=== PATIENT | male | born 2000 | race Caucasian/White ===

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

== ENCOUNTER 2022-11-26 17:17 | Inpatient (IN) | payer OTHER ==
[2022-11-26] VITALS (11 sets, daily range): BP systolic 104–162; BP diastolic 57–101
[~2022-11-26] VITALS: Ht 180.3 cm; Wt 95.6 kg
[~2022-11-26 17:17] MED LIST: BENADRYL 50MG C50 MG PO; CIMETIDINE400 M1 PO; PREDNISONE50 MG PO
--- NOTE | 2022-11-26 17:39 | NUR ---
PROVIDER AT BEDSIDE TO DISCUSS POC.
--- NOTE | 2022-11-26 17:42 | NUR ---
PT SITTING UP IN BED C/O ABD PAIN AFTER EATING THIS MORNING; PAIN 6/10; FAMILY MEMBERS AT BEDSIDE. ORIENT TO ROOM AND CALL SNYDER.
--- NOTE | 2022-11-26 17:50 | NUR ---
PORTABLE XRAY AT BEDSIDE.
[2022-11-26 18:05] LABS: BASO% 0.2 % (0-3); EOS% 1.3 % (0-8); HEMATOCRIT 50.1 % (39.0-50.0); HEMOGLOBIN 16.5 g/dl (14.0-18.0); IMMATURE GRANULOCYTES 0.2 % (0.0-5.0); LYMPH% 22.4 % (15-41); MEAN CELL VOLUME 80.3 fL CALC (80.0-100.0); MEAN CORPUSCULAR HGB 26.4 pG CALC (26.0-32.0); MEAN CORPUSCULAR HGB CONC 32.9 g/dL CAL (32.0-36.0); MONO% 7.6 % (2-13); NEUT# 8.54 thou/uL (1.82-7.42); NEUT% 68.3 % (42-76); RED BLOOD COUNT 6.24 mill/uL (4.70-6.10); RED CELL DISTRI WIDTH 12.7 % (11.5-15.5)
--- NOTE | 2022-11-26 18:22 | NUR ---
MEDS ADMINISTERED VIA IV
[2022-11-26 18:28] LABS: ALBUMIN 5.3 g/dL (3.2-5.0); ALKALINE PHOSPHATASE 66 u/l (38-126); ANION GAP 16 (6-22 (CALC)); BILIRUBIN, TOTAL 0.7 mg/dL (0.2-1.3); BUN 18 mg/dL (9-20); BUN/CREATININE RATIO 20 (12-20 (CALC)); CARBON DIOXIDE 31 mmol/l (22-30); CHLORIDE 95 mmol/l (95-108); CREATININE 0.9 mg/dL (0.7-1.3); GFR FOR AFR.AMER. > 60 ML/MIN (>=60 (CALC)); GFR OTHER RACES > 60 ML/MIN (>=60 (CALC)); LIPASE 130 u/l (23-300); POTASSIUM 3.5 mmol/l (3.5-5.1); SGOT/AST 31 u/l (17-59); SODIUM 138 mmol/l (137-146); TOTAL PROTEIN 9.5 g/dL (6.3-8.2)
[2022-11-26 19:01] LABS: URINE BLOOD DIPSTICK NEGATIVE (NEGATIVE); URINE GLUCOSE - DIPSTICK NEGATIVE (NEGATIVE); URINE KETONE 15 mg/dL (NEGATIVE); URINE LEUK ESTERASE NEGATIVE (NEGATIVE); URINE PH 8.5 (4.5-8.0); URINE PROTEIN - DIPSTICK 100 mg/dL (NEG-TRACE)
[2022-11-26 19:08] LABS: URINE BILIRUBIN - DIPSTICK SMALL (NEGATIVE); URINE NITRITE - DIPSTICK NEGATIVE (Negative)
[2022-11-26 19:09] LABS: URINE AMORPH SEDIMENT MANY hpf (NONE-FER)
[2022-11-26 19:10] LABS: URINE COLOR DK. YELLOW
--- NOTE | 2022-11-26 20:30 | NUR ---
NG TUBE PLACEMENT AT 2009. 16 FR USED. PT TOLERATED PLACEMENT WELL. NO COUGHING, 250 CC GASTRIC FLUIDS COLLECTED,. SUCTION SET ON HIGH. ADVANCE TUBE APPROX 1.5 CM AND COLLECTED MORE FLUIDS AT 800CC XRAY DONE TO VERIFY PLACEMENT.
--- NOTE | 2022-11-26 20:39 | NUR ---
PT SITTING UP IN BED, FAMILY AT BEDSIDE
--- NOTE | 2022-11-26 20:44 | NUR ---
CALLED AND SPOKE WITH ACE IN MEDSURGE TO GIVE PT REPORT
--- NOTE | 2022-11-26 21:00 | NUR ---
PT TO MS 264 VIA WHEELCHAIR. NO DISTRESSED NOTED, VSS. FAMILY AT BEDSIDE AND WENT UP TO FLOOR WITH PT.
--- NOTE | 2022-11-26 22:35 | NUR ---
RECEIVED REPORT FROM ER NURSE. PT BROUGHT TO FLOOR AT 2030 VIA WC. NG TUBE IN PLACE TO WALL SUCTION ORDERED. ALERT AND ORIENTED. GIRLFRIEND AT PTS BEDSIDE. DENIES PAIN AT THIS TIME.
[2022-11-27] VITALS (9 sets, daily range): BP systolic 111–128; BP diastolic 56–74
--- NOTE | 2022-11-27 05:35 | NUR ---
pt denies pain. iv fluids maintained. ng tube drained 900 cc at 5:30 am light brown liquid. voided 500 cc in urinal at 5:30 am.
--- NOTE | 2022-11-27 08:00 | NUR ---
PT ALERT AND ORIENTED.ABLE TO MAKE NEEDS KNOWN.FAMILY AT BEDSIDE. NPO STATUS.PROCEDURE SCHEDULED FOR TODAY.NO C/O PAIN.NO N/V AT THIS TIME.NG TUBE TO RIGHT NOSTRIL DRAINING BROWN GASTRIC FLUIDS.20G RAC RUNNING D5NS @ 125ML/HR.SAFETY PRECAUTIONS IN PLACE.CALL LIGHT WITHIN REACH.
--- NOTE | 2022-11-27 16:00 | NUR ---
PT ALERT AND ORIENTED X3.ABLE TO MAKE NEEDS KNOWN.RETURNED FROM PROCEDURE @ 1300.MEDICATED FOR PAIN WITH EFFECTIVE RESULTS.NG TUBE MEDIUM SUCTION WITH BROWNISH FLUIDS OUPUT.SCD'S IN PLACE AND FUNCTIONING.VS STABLE.20G INFUSING D51/2NS @ 75ML/HR.GIRLFRIEND AT BEDSIDE.SAFETY PRECATIONS IN PLACE.CALL LIGHT WITHIN REACH.
--- NOTE | 2022-11-28 01:02 | NUR ---
received bedside report at begining of shift. pt sitting up in bed with family present. ng tube to wall suction draining light brown liquid. pt alert, oriented and pleasant. c/o discomfort and medicated with dilaudid as ordered with good effect. call light in reach. iv maintained as ordered
--- NOTE | 2022-11-28 01:07 | NUR ---
pt was given mouth swabs in cool ice for mouth care. pt instructed not to swallow any liquid. very pleasant and appreciative. girlfriend with pt. watching tv. call light in reach.
[2022-11-28 04:00] VITALS: BP 116/73
[2022-11-28 04:28] VITALS: BP 116/73
[2022-11-28 05:35] LABS: BASO% 0.1 % (0-3); EOS% 2.7 % (0-8); HEMATOCRIT 44.6 % (39.0-50.0); IMMATURE GRANULOCYTES 0.2 % (0.0-5.0); MEAN CELL VOLUME 83.1 fL CALC (80.0-100.0); MEAN CORPUSCULAR HGB CONC 32.5 g/dL CAL (32.0-36.0); MONO% 9.1 % (2-13); NEUT# 9.79 thou/uL (1.82-7.42); NEUT% 72.9 % (42-76); RED BLOOD COUNT 5.37 mill/uL (4.70-6.10); RED CELL DISTRI WIDTH 13.1 % (11.5-15.5)
[2022-11-28 05:41] LABS: HEMOGLOBIN 14.5 g/dl (14.0-18.0)
--- NOTE | 2022-11-28 06:13 | NUR ---
PT MEDICATED WITH DILAUDID FOR ABDOMINAL PAIN WITH GOOD EFFECT. SCDS ON AND OFF. AMBULATED TO BR. NO BM. URINATING WELL LARGE AMOUNTS. WEIGHT IS 95.4 KG. DOWN 4.39 KGS FROM 11/27. NPO REMAINS. NG TUBE DRAINING LIGHT BROWN TO CLEAR LIQUID. 800 CC TOTAL SHIFT OUTPUT. IV FLUIDS MAINTAINED ORDERED. SLEPT IN NAPS
[2022-11-28 06:48] VITALS: BP 108/62
[2022-11-28 14:32] VITALS: BP 105/52
[2022-11-28 18:00] VITALS: BP 118/67
[2022-11-28 18:21] VITALS: BP 118/67
--- NOTE | 2022-11-28 20:15 | NUR ---
PT RESTING IN BED, NO SIGNS OF DISTRESS NOTED, RESP EVEN AND UNLABORED. PT ALERT AND ORIENTED X3, S/O AT BEDSIDE. DISCUSSED POC. NGT TO L NARE TO SUCTION. NOTED YELLOW/GREEN FLUID. CHECKED PLACEMENT. PT MEDICATED PER SEP. CLAMPED FOR CARAFATE. BS HYPOACTIVE. PT STATES HE HAS NOT HAD A BM SINCE 11/26. C/O PAIN PT MEDICATED PER SEP. ASSESSMENT COMPLETED, CALL LIGHT IN REACH, CONTINUE TO MONITOR.
--- NOTE | 2022-11-29 | NUR ---
PT RESTING IN BED WITH EYES CLOSED, NO SIGNS OF DISTRESS NOTED, RESP EVEN AND UNLABORED. CALL LIGHT IN REACH,CONTINUE TO MONITOR.
--- NOTE | 2022-11-29 01:31 | NUR ---
PT CALLED, UPON ENTERING ROOM, NOTED NGT DISLODGED BUT NOT COMPLETELY REMOVED. ADVANCED NGT TO POSITION, CHECKED PLACEMENT WITH 20ML AIR BOLUS, PT TOLERATED WELL. POSITION CONFIRMED. PT MEDICATED FOR PAIN, CALL LIGHT IN REACH,CONTINUE TO MONITOR.
[2022-11-29 04:02] VITALS: BP 118/73
--- NOTE | 2022-11-29 04:30 | NUR ---
PT RESTING IN BED, NO SIGNS OF DISTRESS NOTED, RESP EVEN AND UNLABORED. PT C/O PAIN TO ABD AND THROAT, PT MEDICATED PER MAR, CALL LIGHT IN REACH,CONTINUE TO MONITOR.
[2022-11-29 05:13] LABS: BASO% 0.2 % (0-3); EOS% 2.9 % (0-8); HEMOGLOBIN 13.8 g/dl (14.0-18.0); IMMATURE GRANULOCYTES 0.2 % (0.0-5.0); LYMPH% 16.3 % (15-41); MEAN CELL VOLUME 83.3 fL CALC (80.0-100.0); MEAN CORPUSCULAR HGB 26.7 pG CALC (26.0-32.0); MEAN CORPUSCULAR HGB CONC 32.1 g/dL CAL (32.0-36.0); MONO% 8.3 % (2-13); NEUT% 72.1 % (42-76); RED BLOOD COUNT 5.16 mill/uL (4.70-6.10)
[2022-11-29 05:28] VITALS: BP 118/73
[2022-11-29 05:34] LABS: ANION GAP 15 (6-22 (CALC)); BUN 14 mg/dL (9-20); BUN/CREATININE RATIO 16 (12-20 (CALC)); CARBON DIOXIDE 27 mmol/l (22-30); CHLORIDE 101 mmol/l (95-108); CREATININE 0.8 mg/dL (0.7-1.3); GFR FOR AFR.AMER. > 60 ML/MIN (>=60 (CALC)); GFR OTHER RACES > 60 ML/MIN (>=60 (CALC)); SODIUM 138 mmol/l (137-146)
[2022-11-29 06:47] VITALS: BP 131/80
--- NOTE | 2022-11-29 07:00 | NUR ---
RECEIVED REPORT FROM PM NURSE. PT RESTING IN BED. VSS. ALL SAFETY MEASURES IN PLACE. NO NEEDS AT THIS TIME.
[2022-11-29 15:25] VITALS: BP 118/70
[2022-11-29 18:57] VITALS: BP 128/66
--- NOTE | 2022-11-29 20:18 | NUR ---
PT RESTING IN BED, NO SIGNS OF DISTRESS NOTED, RESP EVEN AND UNLABORED. PT ALERT AND ORIENTED X3, DISCUSSED POC, S/O AT BEDSIDE. PT HAS NGT TO R NARE TO LOW CONTINUOUS SUCTION. CHECKED PLACEMENT OF NGT, PT TOLERATED WELL. PT MEDICATED PER MAR, PT C/O PAIN. ASSESSMENT COMPLETED, CALL LIGHT IN REACH,CONTINUE TO MONITOR.
--- NOTE | 2022-11-30 | NUR ---
PT RESTING IN BED WITH EYES CLOSED, NO SIGNS OF DISTRESS NOTED, RESP EVEN AND UNLABORED. S/O AT BEDSIDE, CALL LIGHT IN REACH,CONTINUE TO MONITOR.
--- NOTE | 2022-11-30 03:53 | NUR ---
PT RESTING IN BED WITH EYES CLOSED, NO SIGNS OF DISTRESS NOTED, RESP EVEN AND UNLABORED. CALL LIGHT IN REACH,CONTINUE TO MONITOR.
[2022-11-30 04:18] VITALS: BP 111/61
[2022-11-30 07:26] VITALS: BP 125/72
--- NOTE | 2022-11-30 08:00 | NUR ---
PT ALERT AND ORIENTED.ABLE TO MAKE NEEDS KNOWN.PARENTS AT BEDSIDE MEDICATED FOR PAIN WITH EFFECTIVE RESULTS.PT SAYS, "FEELING WARM".PT HAS TEMP 100.8. MADE AWARE.NO NEW ORDERS MADE.PT HAS EDEMA,REDNESS AND WARMTH TO UPPER RIGHT EXTREMITY.PT NPO WITH ICE CHIPS ONLY.PT PASSING GAS AND HAD SMALL LOOSE BM TODAY.TO HAVE BOWEL SERIES PROCEDURE TODAY TIME UNKNOWN.20G RFA INFUSING D51/2NS @ 75ML/HR.SAFETY PRECAUTIONS IN PLACE.CALL LIGHT WITHIN REACH.
[2022-11-30 09:49] VITALS: BP 113/70
--- NOTE | 2022-11-30 12:00 | NUR ---
PT RESTING IN BED.MD REMOVED NG TUBE.WILL SEE HOW HE TOLERATES FULL LIQUID DIET.NO REQUEST FOR PAIN MEDICATION.RESPIRATIONS EVEN,UNLABORED.HAD MEDIUM BM.FAMILY AT BEDSIDE.SAFETY PRECAUTIONS IN PLACE.CALL LIGHT WITHIN REACH.WILL CONTINUE TO MONITOR.
[2022-11-30 15:41] VITALS: BP 114/64
--- NOTE | 2022-11-30 15:42 | NUR ---
nurse asher was made aware of pt temp of 102.1 and hr of 110 @1543
[2022-11-30 18:19] VITALS: BP 123/66
--- NOTE | 2022-11-30 19:30 | NUR ---
PATIENT SITTING UP IN BED. ALERT AND ABLE TO MAKE NEEDS KNOWN. ASSESSMENT COMPLETE. DENIES ANY PAIN. NO DISTRESS NOTED. BED REMAINS IN LOW POSITION. CALL SNYDER AND BELONGINGS IN REACH.
--- NOTE | 2022-12-01 01:00 | NUR ---
PATIENT REMAINS RESTING IN BED WITH HOB SLIGHTLY ELEVATED. NO DISTRESS NOTED. NO SIGNS OF PAIN. BED REMAINS IN LOW POSITION. CALL SNYDER AND BELONGINGS IN REACH.
[2022-12-01 04:46] VITALS: BP 101/62
--- NOTE | 2022-12-01 04:46 | NUR ---
PATIENT RESTING IN BED. NO COMPLAINTS VOICED. REQUESTED SOMETHING TO SNACK ON. TOLERATING WELL. NO COMPLAINTS OF NAUSEA. PREVIOUS IV SITE REDNESS APPEARS CLINICAL DOCUMENTATION SPEC TO RIGHT ARM. REMAINS SLIGHTLY WARM TO TOUCH. PATIENT VOICED, ''IT FEELS BETTER''. WILL RELAY IN REPORT TO DAY SHIFT NURSE.
[2022-12-01 05:24] LABS: BASO% 0.3 % (0-3); EOS% 1.1 % (0-8); HEMATOCRIT 39.4 % (39.0-50.0); HEMOGLOBIN 12.7 g/dl (14.0-18.0); IMMATURE GRANULOCYTES 0.9 % (0.0-5.0); LYMPH% 16.6 % (15-41); MEAN CELL VOLUME 82.6 fL CALC (80.0-100.0); MEAN CORPUSCULAR HGB 26.6 pG CALC (26.0-32.0); MEAN CORPUSCULAR HGB CONC 32.2 g/dL CAL (32.0-36.0); MONO% 13.3 % (2-13); NEUT# 4.73 thou/uL (1.82-7.42); NEUT% 67.8 % (42-76); RED BLOOD COUNT 4.77 mill/uL (4.70-6.10); RED CELL DISTRI WIDTH 12.8 % (11.5-15.5)
[2022-12-01 05:45] LABS: ALBUMIN 3.8 g/dL (3.2-5.0); ALKALINE PHOSPHATASE 43 u/l (38-126); ANION GAP 13 (6-22 (CALC)); BILIRUBIN, TOTAL 0.4 mg/dL (0.2-1.3); BUN 10 mg/dL (9-20); BUN/CREATININE RATIO 12 (12-20 (CALC)); CARBON DIOXIDE 27 mmol/l (22-30); CHLORIDE 100 mmol/l (95-108); CREATININE 0.8 mg/dL (0.7-1.3); GFR FOR AFR.AMER. > 60 ML/MIN (>=60 (CALC)); GFR OTHER RACES > 60 ML/MIN (>=60 (CALC)); POTASSIUM 3.7 mmol/l (3.5-5.1); SGOT/AST 26 u/l (17-59); SODIUM 136 mmol/l (137-146); TOTAL PROTEIN 6.8 g/dL (6.3-8.2)
[2022-12-01 06:30] VITALS: BP 104/59
[2022-12-01 07:03] VITALS: BP 104/59
--- NOTE | 2022-12-01 08:00 | NUR ---
PT IN BED ALERT AND ORIENTED X 4 WITH FAMILY AT BEDSIDE. PT HAS NO C/O PAIN AT THIS ITME. PT IS AMBULATING TO BATHROOM FOR ANY TOILETING NEEDS. IV SITE TO RFA CLEAN AND INTACT WITH D5 1/2 NS @ 75ML/HR INFUSING. PT HAS CALL LIGHT WITHIN REACH AND SAFETY MEASURES IN PLACE AT THIS ITME.
[2022-12-01] MEDS ORDERED: OMEPRAZOLE20 MG PO (10:51)
[2022-12-01] MEDS ORDERED: CLARITHROMYCIN500 MG PO (10:52)
[2022-12-01] MEDS ORDERED: AMOXICILLIN500 M2 PO (10:55)
--- NOTE | 2022-12-01 11:40 | NUR ---
PATIENT TOLERATED DIET-DISCAHRGED HOME TO SELF CARE. NO DISCHARGE NEEDS AT THIS TIME.
[2022-12-01] MEDS ORDERED: METRONIDAZOLE250 MG PO (12:20)
--- NOTE | 2022-12-01 12:32 | NUR ---
Discharge instructions given. Patient verbalizes understanding of same. Discharged in stable condition via Ambulatory to Home with family. All belongings sent with pt.
== END 2022-12-01 12:32 | disposition home or self-care (01) | DRG 384 ==
LOC: ED 17:17 → MS2 19:41
PROVIDERS: Nurse Practitioner; ADMIT Surgery; ATTEND Surgery
PROC: 0DB98ZX Excision of Duodenum, Via Natural or Artificial Opening Endoscopic, Diagnostic (ICD-10-PCS; principal; 2022-11-27)
PROC: 0DB68ZX Excision of Stomach, Via Natural or Artificial Opening Endoscopic, Diagnostic (ICD-10-PCS; 2022-11-27)
DX: K26.9 Duodenal ulcer, unspecified as acute or chronic, without hemorrhage or perforation (principal); K25.9 Gastric ulcer, unspecified as acute or chronic, without hemorrhage or perforation; K21.9 Gastro-esophageal reflux disease without esophagitis; Z87.19 Personal history of other diseases of the digestive system; Z20.822 Contact with and (suspected) exposure to COVID-19
CPT/HCPCS: Q9967; S0164

== ENCOUNTER 2024-01-16 19:25 | Observation (INO) | payer OTHER ==
[~2024-01-16] VITALS: Ht 180.3 cm; Wt 109.4 kg
[~2024-01-16 19:25] MED LIST changes: +AMOXICILLIN500 M2 PO; +CLARITHROMYCIN500 MG PO; +METRONIDAZOLE250 MG PO; +OMEPRAZOLE20 MG PO
--- NOTE | 2024-01-16 19:45 | NUR ---
PT ARRIVES TO ROOM 12 VIA AMBULATION. COMPLAINT OF ABD PAIN STARTING THIS MORNING. DENIES V/D FEVER.
[2024-01-16 19:50] VITALS: BP 134/80
[2024-01-16] MEDS ORDERED: Pantoprazole Sodium 40 MG VIAL (Protonix) IV STA (20:06)
[2024-01-16] MEDS ORDERED: SODIUM CHLORIDE 0.9% 1,000 ML IV STA (20:06)
[2024-01-16] MEDS ORDERED: HYDROXYZINE HYD25 MG PO (20:08)
[2024-01-16] MEDS ORDERED: CARAFATE1 GM PO (20:09)
[2024-01-16] MEDS ORDERED: ZOLOFT50 MG PO (20:09)
[2024-01-16] MEDS ORDERED: PROTONIX40 M2 PO (20:09)
[2024-01-16] MEDS ORDERED: KETOROLAC TROMETHAMINE 30 MG/ML SDV IV ONE (20:10)
[2024-01-16] MEDS ORDERED: DIATRIZOATE MEGLUMINE & SODIUM 30 ML/BTL BTL PO ONE (20:10)
[2024-01-16] MEDS ORDERED: PROMETHAZINE HCL 25 MG/ML AMP IV ONE (20:10)
[2024-01-16 20:21] LABS: BASO% 0.2 % (0-3); EOS% 4.2 % (0-8); IMMATURE GRANULOCYTES 0.3 % (0.0-5.0); LYMPH% 26.7 % (15-41); MEAN CELL VOLUME 84.1 fL CALC (80.0-100.0); MEAN CORPUSCULAR HGB 27.2 pG CALC (26.0-32.0); MEAN CORPUSCULAR HGB CONC 32.4 g/dL CAL (32.0-36.0); NEUT# 7.12 thou/uL (1.82-7.42); NEUT% 59.6 % (42-76); RED BLOOD COUNT 5.47 mill/uL (4.70-6.10)
[2024-01-16 20:28] LABS: ALBUMIN 4.5 g/dL (3.2-5.0); BILIRUBIN, TOTAL 0.3 mg/dL (0.2-1.3); CREATININE 0.8 mg/dL (0.7-1.3); POTASSIUM 3.7 mmol/l (3.5-5.1); TOTAL PROTEIN 7.6 g/dL (6.3-8.2)
[2024-01-16 20:29] LABS: HEMOGLOBIN 14.9 g/dl (14.0-18.0)
--- NOTE | 2024-01-16 21:21 | NUR ---
PT RESTING WITH EYES CLOSED. NO NEEDS AT THIS TIME.
[2024-01-16 21:22] LABS: URINE BILIRUBIN - DIPSTICK Negative (NEGATIVE); URINE BLOOD DIPSTICK Small (NEGATIVE); URINE GLUCOSE - DIPSTICK Negative (NEGATIVE); URINE KETONE Negative (NEGATIVE); URINE LEUK ESTERASE Negative (NEGATIVE); URINE NITRITE - DIPSTICK Negative (Negative); URINE PH 6.5 (4.5-8.0); URINE PROTEIN - DIPSTICK Negative (NEG-TRACE); URINE SPECIFIC GRAVITY 1.015; URINE UROBILINOGEN - DIPSTICK 0.2 E.U./dL (0.2)
[2024-01-16 21:23] LABS: URINE COLOR Yellow
[2024-01-16 21:31] LABS: URINE WBC 0-2 WBC/hpf (0-5)
--- NOTE | 2024-01-16 22:53 | NUR ---
AT BEDSIDE TALKING WITH PATIENT.
[2024-01-16 22:54] VITALS: BP 107/54
[2024-01-16] MEDS ORDERED: PROMETHAZINE HCL 25 MG/ML AMP IV PRN (23:00)
[2024-01-16] MEDS ORDERED: HYDROmorphone HCL 2 MG/AMP IV STA (23:00)
[2024-01-16] MEDS ORDERED: ONDANSETRON HCl 4 MG/2 ML SDV IV STA (23:00)
[2024-01-16] MEDS ORDERED: ONDANSETRON HCl 4 MG/2 ML SDV IV PRN ×2 (23:00→23:30)
[2024-01-16 23:01] VITALS: BP 111/54
[2024-01-16] MEDS ORDERED: LACTATED RINGER'S 1,000 ML IV ONE ×2 (23:05→23:10)
[2024-01-16] MEDS ORDERED: Levofloxacin 750 mg Premix 150 ML IV ONE (23:05)
[2024-01-16] MEDS ORDERED: metroNIDAZOLE Premix 500 MG/100 ML BAG IV ONE (23:05)
[2024-01-16] MEDS ORDERED: FAMOTIDINE 10MG/ML 2ML SDV IV PRN (23:10)
[2024-01-16] MEDS ORDERED: Levofloxacin 750 mg Premix 150 ML IV SCH (23:30)
[2024-01-16] MEDS ORDERED: HYDROmorphone HCL 2 MG/AMP IV PRN (23:30)
[2024-01-16 23:31] VITALS: BP 122/51
--- NOTE | 2024-01-16 23:45 | NUR ---
PT REPORT TO DEANDRE LAURENT. TRANSFERRED CARE OF PT.
[2024-01-17] VITALS (13 sets, daily range): BP systolic 92–135; BP diastolic 39–78
--- NOTE | 2024-01-17 00:06 | NUR ---
PT TRANSPORTED VIA WC TO ROOM 273. TRANSFERRED CARE OF PT.
--- NOTE | 2024-01-17 01:00 | NUR ---
RECEIVED RPEORT FROM ER NURSE LUIS. PT TRANSFERRED TO [facility] 273 VIA . PT ABLE TO AMBULATE WITH STEADY GAIT FROM TO BED. PT S/O PRESENT IN ROOM. PT ON AIR, A/OX4. PT C/O PAIN 8 OUT OF 10 TO ABD, RLQ TENDERNESS. PT DENIES ANY NAUSEA OR VOMITTING AT THIS TIME. PAIN MEDICAITON ADMINISTERED PER EMAR. IV SITE APPEARS HEALTHY AND INTACT. EDUCATED PT ON PLAN OF CARE, MED SCHEDULE, AND DIET. PT PLACED ON NPO PER PHYSICIANS ORDER. NO S/S OF DISTRESS. CALL LIGHT WITHIN REACH AND SAFETY PRECAUTIONS IN PLACE.
--- NOTE | 2024-01-17 04:17 | NUR ---
PT LAYING SUPINE, RESTING COMFORTABLY AT THIS TIME. S/O AT BEDSIDE. NO S/S OF DISTRESS. CALL LIGHT WITHIN REACH AND SAFETY PRECAUTIONS IN PLACE.
--- NOTE | 2024-01-17 07:19 | NUR ---
PATIENT LAYING IN BED. PATIENT IS A&OX4 AND ABLE TO MAKE NEEDS KNOWN. PATIENT ABDOMEN SOFT BUT TENDER TO TOUCH, RESPIRATIONS EVEN AND UNLABORED, PEDAL PULSES IS PRESENT. PATIENT DENIES ANY NEEDS AT THIS TIME. WILL CONTINUE TO MONITOR.
[2024-01-17] MEDS ORDERED: SUGAMMADEX SODIUM 200 MG/2 ML SDV IV ONE (08:38)
[2024-01-17] MEDS ORDERED: PROPOFOL 200 MG/20 ML VIAL IV ONE (08:38)
[2024-01-17] MEDS ORDERED: SUCCINYLCHOLINE CHLORIDE 20 MG/ML 10ML VIAL IV ONE (08:38)
[2024-01-17] MEDS ORDERED: ACETAMINOPHEN 1,000 MG/100 ML VIAL IV ONE (08:38)
[2024-01-17] MEDS ORDERED: GLYCOPYRROLATE 0.2 MG/ML IV ONE (08:38)
[2024-01-17] MEDS ORDERED: KETOROLAC TROMETHAMINE 30 MG/ML SDV IV ONE (08:38)
[2024-01-17] MEDS ORDERED: ONDANSETRON HCl 4 MG/2 ML SDV IV ONE (08:38)
[2024-01-17] MEDS ORDERED: LIDOCAINE HCL 2% 2ML SDV IV ONE (08:38)
[2024-01-17] MEDS ORDERED: ROCURONIUM BROMIDE 10 MG/ML 5ML VIAL IV ONE (08:38)
[2024-01-17] MEDS ORDERED: MIDAZOLAM HCL 2 MG/2 ML VIAL IV ONE (08:38)
[2024-01-17] MEDS ORDERED: DEXAMETHASONE SODIUM PHOSPHATE PF 10 MG/ML SDV IV ONE (08:38)
[2024-01-17] MEDS ORDERED: LACTATED RINGER'S 1,000 ML BAG IV ONE (08:38)
--- NOTE | 2024-01-17 10:08 | NUR ---
PATIENT OFF UNIT TO OR.
[2024-01-17] MEDS ORDERED: LIDOcaine HCl 1% (Local Anesth.) 20 ML VIAL ONE ×2 (10:32→10:33)
[2024-01-17] MEDS ORDERED: STERILE WATER FOR IRRIGATION 1,000 ML BTL IR ONE (10:33)
[2024-01-17] MEDS ORDERED: SODIUM CHLORIDE 1,000 ML BTL IR ONE (10:33)
[2024-01-17] MEDS ORDERED: LACTATED RINGER'S 1,000 ML IV ONE (10:48)
[2024-01-17] MEDS ORDERED: FAMOTIDINE 10MG/ML 2ML SDV IV ONE (11:01)
--- NOTE | 2024-01-17 12:13 | NUR ---
PATIENT IS STILL OFF UNIT TO OR.
[2024-01-17] MEDS ORDERED: PERCOCET 5/325M1 TAB PO (12:18)
[2024-01-17] MEDS ORDERED: oxyCODONE 5MG/ ACETAMINOPHEN 325MG TAB PO PRN (12:20)
--- NOTE | 2024-01-17 13:00 | NUR ---
PATIENT BACK TO UNIT FROM OR.
--- NOTE | 2024-01-17 16:07 | NUR ---
PATIENT RESTING QUIETLY WITH EYES CLOSED BUT EASILY AROUSED. FAMILY AT BEDSIDE. PATIENT DENIES ANY NEEDS AT THIS TIME. WILL CONTINUE TO MONITOR.
--- NOTE | 2024-01-17 20:00 | NUR ---
RECEIVED REPORT FROM DAYSALFT NURSE. PT NOTED LAYING IN BED SUPINE, RM AIR, A/OX4. MULTIPLE VISITORS IN RM AT THIS TIME. PT HAS BEEN ABLE TO VOID POST PROCEDURE. OSCAR BEING ABLE TO PASS GAS AT THIS TIME BUT DOES STATE THEY HAVE BEEN BELCHING. BOWEL SOUNDS ACTIVE. THREE INCISIONS NOTED WITH DERMABOND IN PLACE. NO REDNESS OR DRAINAGE PRESENT. ENCOURAGED PT TO AMBUALTE IN HALLWAY. STAND BY ASSIST WHEN PT AMBULATED UP AND DOWN HALLWAY, STEADY GAIT. PT LAYING BACK IN BED SEMI FOWLERS. EDUCATED ON POC AND MED SCHEDULE. WILL FOLLOW UP WITH PAIN MEDICAIOTN PER EMAR. CALL LIGHT WITHIN REACH AND SAFETY PRECAUTIONS IN PLACE. E
--- NOTE | 2024-01-18 | NUR ---
PT RECEIVED MEDICAOTN PER EMAR FOR PAIN AND NAUSEA. TOELRATED WELL AND CURRENTLY RESTING IN BED SUPINE. NO S/S OF DISTRESS. S/O AT BEDSIDE. CALL LIGHT WITHIN REACH AND SAFETY PRECAUTIONS IN PLACE.
--- NOTE | 2024-01-18 04:04 | NUR ---
PT LAYING IN BED SUPINE, S/O AT BEDSIDE. NO S.S OF DISTRESS. CALL LIGHT WITHIN REACH AND SAFETYPRECAUTIONS IN PLACE.
[2024-01-18 04:26] VITALS: BP 101/41
[2024-01-18 04:48] VITALS: BP 101/41
[2024-01-18 07:25] VITALS: BP 104/43
[2024-01-18 08:34] VITALS: BP 114/54
[2024-01-18] MEDS ORDERED: KETOROLAC TROMETHAMINE 15 MG/ML SDV IV SCH (09:00)
--- NOTE | 2024-01-18 11:44 | NUR ---
Discharge instructions given. Patient verbalizes understanding of same. Discharged in stable condition via Wheelchair to Home with *Other. All belongings sent with pt. IV removed, catheter intact, site WNL.
== END 2024-01-18 12:09 | disposition home or self-care (01) | DRG 399 ==
LOC: ED 19:25 → ED-I 22:30 → ED 23:09 → MS2 23:10
PROVIDERS: Family Medicine; ADMIT Surgery; ATTEND Surgery
PROC: 0DTJ4ZZ Resection of Appendix, Percutaneous Endoscopic Approach (ICD-10-PCS; principal; 2024-01-17)
DX: K35.30 Acute appendicitis with localized peritonitis, without perforation or gangrene (principal); K21.9 Gastro-esophageal reflux disease without esophagitis; F17.200 Nicotine dependence, unspecified, uncomplicated; Z87.11 Personal history of peptic ulcer disease
CPT/HCPCS: G0378; J0131; J1100; Q9967; S0164

== ENCOUNTER 2024-06-30 12:57 | Emergency (ER) | payer BC ==
[2024-06-30] VITALS (15 sets, daily range): BP systolic 89–135; BP diastolic 35–73
[~2024-06-30] VITALS: Ht 180.3 cm; Wt 108.0 kg
[~2024-06-30 12:57] MED LIST changes: +CARAFATE1 GM PO; +HYDROXYZINE HYD25 MG PO; +METRONIDAZOLE500 MG PO; +PERCOCET 5/325M1 TAB PO; +PROTONIX40 M2 PO; +XANAX0.25 MG PO; +ZOLOFT50 MG PO
[2024-06-30] MEDS ORDERED: MORPHINE SULFATE 4 MG/ML VIAL IV STA (13:15)
[2024-06-30] MEDS ORDERED: SODIUM CHLORIDE 0.9% 1,000 ML IV STA (13:15)
[2024-06-30] MEDS ORDERED: ONDANSETRON HCl 4 MG/2 ML SDV IV STA (13:15)
[2024-06-30] MEDS ORDERED: KETOROLAC TROMETHAMINE 30 MG/ML SDV IV STA (13:15)
[2024-06-30] MEDS ORDERED: ISOVUE-300 (Iopamidol) 100 ML SDV IV ONE (13:20)
[2024-06-30] MEDS ORDERED: Pantoprazole Sodium 40 MG VIAL (Protonix) IV ONE (13:30)
[2024-06-30] MEDS ORDERED: FAMOTIDINE 10MG/ML 2ML SDV IV ONE (13:30)
[2024-06-30 13:41] LABS: URINE BILIRUBIN - DIPSTICK Negative (NEGATIVE); URINE BLOOD DIPSTICK Negative (NEGATIVE); URINE GLUCOSE - DIPSTICK Negative (NEGATIVE); URINE KETONE Negative (NEGATIVE); URINE LEUK ESTERASE Negative (NEGATIVE); URINE NITRITE - DIPSTICK Negative (Negative); URINE PH 7.5 (4.5-8.0); URINE PROTEIN - DIPSTICK Negative (NEG-TRACE); URINE SPECIFIC GRAVITY 1.015; URINE UROBILINOGEN - DIPSTICK 0.2 E.U./dL (0.2)
[2024-06-30 13:42] LABS: BASO% 0.2 % (0-3); EOS% 1.8 % (0-8); HEMATOCRIT 44.6 % (39.0-50.0); HEMOGLOBIN 14.6 g/dl (14.0-18.0); IMMATURE GRANULOCYTES 0.3 % (0.0-5.0); MEAN CELL VOLUME 82.7 fL CALC (80.0-100.0); MEAN CORPUSCULAR HGB 27.1 pG CALC (26.0-32.0); MEAN CORPUSCULAR HGB CONC 32.7 g/dL CAL (32.0-36.0); MONO% 7.9 % (2-13); NEUT# 6.37 thou/uL (1.82-7.42); NEUT% 61.8 % (42-76); RED BLOOD COUNT 5.39 mill/uL (4.70-6.10); RED CELL DISTRI WIDTH 12.8 % (11.5-15.5)
[2024-06-30 13:43] LABS: URINE COLOR Yellow
[2024-06-30 14:02] LABS: ALBUMIN 4.9 g/dL (3.2-5.0); CREATININE 1.1 mg/dL (0.7-1.3); POTASSIUM 4.1 mmol/l (3.5-5.1)
[2024-06-30 14:03] LABS: BILIRUBIN, TOTAL 0.5 mg/dL (0.2-1.3)
[2024-06-30] MEDS ORDERED: HYDROmorphone HCL 2 MG/AMP IV STA (15:04)
[2024-06-30] MEDS ORDERED: PROTONIX40 M2 PO (16:25)
[2024-06-30] MEDS ORDERED: CARAFATE1 GM PO (16:25)
[2024-06-30] MEDS ORDERED: ZOFRAN4 MG/TAB PO (16:29)
== END 2024-06-30 16:51 | disposition home or self-care (01) | DRG 392 ==
LOC: ED 12:57
PROVIDERS: Nurse Practitioner
DX: K29.70 Gastritis, unspecified, without bleeding (principal); K21.9 Gastro-esophageal reflux disease without esophagitis
CPT/HCPCS: J2470; Q9967

== ENCOUNTER 2024-08-02 18:11 | Emergency (ER) | payer BC ==
[~2024-08-02] VITALS: Ht 180.3 cm; Wt 100.0 kg
[~2024-08-02 18:11] MED LIST changes: +ZOFRAN4 MG/TAB PO
[2024-08-02] MEDS ORDERED: PEPCID20 MG PO (20:44)
[2024-08-02] MEDS ORDERED: MYLANTA1 ML PO (20:45)
[2024-08-02] MEDS ORDERED: SODIUM CHLORIDE 0.9% 1,000 ML IV ONE (21:00)
[2024-08-02] MEDS ORDERED: Pantoprazole Sodium 40 MG VIAL (Protonix) IV ONE (21:00)
[2024-08-02] MEDS ORDERED: ONDANSETRON HCl 4 MG/2 ML SDV IV ONE (21:00)
[2024-08-02] MEDS ORDERED: MORPHINE SULFATE 4 MG/ML VIAL IV ONE (21:00)
[2024-08-02 21:11] LABS: BASO% 0.2 % (0-3); EOS% 1.5 % (0-8); HEMATOCRIT 46.4 % (39.0-50.0); HEMOGLOBIN 14.9 g/dl (14.0-18.0); IMMATURE GRANULOCYTES 0.5 % (0.0-5.0); MEAN CELL VOLUME 84.5 fL CALC (80.0-100.0); MEAN CORPUSCULAR HGB 27.1 pG CALC (26.0-32.0); MEAN CORPUSCULAR HGB CONC 32.1 g/dL CAL (32.0-36.0); MONO% 8.6 % (2-13); NEUT# 9.61 thou/uL (1.82-7.42); NEUT% 73.2 % (42-76); RED BLOOD COUNT 5.49 mill/uL (4.70-6.10); RED CELL DISTRI WIDTH 13.4 % (11.5-15.5)
[2024-08-02 21:22] LABS: ALBUMIN 4.8 g/dL (3.2-5.0); BILIRUBIN, TOTAL 0.6 mg/dL (0.2-1.3); CREATININE 0.8 mg/dL (0.7-1.3); POTASSIUM 4.2 mmol/l (3.5-5.1)
[2024-08-02 21:29] LABS: ACT PARTIAL THROMBO TIME 30.3 SECONDS (20.0-32.5); INTERNATIONAL NORMALIZED RATIO 1.1 RATIO (0.7-1.3); PROTHROMBIN TIME 11.7 SECONDS (9.0-12.5)
[2024-08-02] MEDS ORDERED: PERCOCET 5/325M1 TAB PO (21:42)
[2024-08-02 22:12] VITALS: BP 122/84
== END 2024-08-02 22:12 | disposition home or self-care (01) | DRG 384 ==
LOC: ED 18:11
PROVIDERS: Family Medicine
DX: K26.9 Duodenal ulcer, unspecified as acute or chronic, without hemorrhage or perforation (principal)
CPT/HCPCS: J2405; J2470